=== PATIENT | male | born 1955 | race Caucasian/White ===

== ENCOUNTER 2021-04-14 22:14 | Emergency (ER) | payer MEDICARE, OTHER ==
[2021-04-14 22:40] VITALS: BP 150/64; PULSE 72
[2021-04-14] MEDS ORDERED: Acetaminophen/HYDROcodone 325-5 MG Tab PO ONE (22:52)
--- NOTE | 2021-04-14 23:30 | EDM.PDOC ---
ED HPI GENERAL MEDICAL PROBLEM - General Chief Complaint: Lower Extremity Injury/Pain Stated Complaint: FALL/LT HIP PAIN Time Seen by Provider: 04/14/21 22:36 Source of Information: Reports: Patient, RN Notes Reviewed - History of Present Illness INITIAL COMMENTS - FREE TEXT/NARRATIVE: 66 yr old male slipped on ice a short time ago. Has pain and some swelling L lateral hip and L post buttock. Denies other pain or injury. He is on coumadin. He did not hit his head. Denies Milian, neck, back or chest pain or difficulty breathing. 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 Left Hip Pain Score (Numeric/FACES): 7 - Related Data Allergies Allergy/AdvReac Type Severity Reaction Status Date / Time No Known Allergies Allergy Verified 04/14/21 22:33 Home Meds: Home Meds Aspirin [Halfprin] 81 mg PO DAILY 11/09/13 [History] Diltiazem IR [Cardizem] 30 mg PO Q12HR 11/09/13 [History] Ferrous Sulfate [Iron] 325 mg PO DAILY 11/09/13 [History] Folic Acid 1 mg PO DAILY 11/09/13 [History] Simvastatin 40 mg PO DAILY 11/09/13 [History] Warfarin [Coumadin] 5 mg PO DAILY 11/09/13 [History] Albuterol Sulfate 04/14/21 [History] Clopidogrel [Plavix] 04/14/21 [History] Cyanocobalamin/FA/Pyridoxine [Folbic] 04/14/21 [History] Furosemide [Lasix] 04/14/21 [History] Hydrocodone/Acetaminophen [HYDROcodone-Acetaminophen 5-325 MG] 1 each PO Q6HR PRN #10 tab 04/14/21 [Rx] atorvaSTATin [Lipitor] 04/14/21 [History] Past Medical History Cardiovascular History: Reports: Afib, Heart Failure, High Cholesterol, Hypertension, SOB on Exertion Respiratory History: Reports: Sleep Apnea Neurological History: Reports: Neuropathy, Peripheral - Past Surgical History Cardiovascular Surgical History: Reports: Cardiac Ablation Social & Family History - Tobacco Use Tobacco Use Status *Q: Unknown Ever Used Tobacco Review of Systems - Review of Systems Review Of Systems: See Below Constitutional: Reports: No Symptoms Eyes: Reports: No Symptoms Ears: Reports: No Symptoms Nose: Reports: No Symptoms Mouth/Throat: Reports: No Symptoms Respiratory: Denies: Shortness of Breath Cardiovascular: Denies: Chest Pain GI/Abdominal: Denies: Abdominal Pain, Nausea, Vomiting Musculoskeletal: Denies: Neck Pain, Shoulder Pain Skin: Reports: No Symptoms Neurological: Reports: No Symptoms ED EXAM, GENERAL - Physical Exam Exam: See Below General Appearance: Alert, Mild Distress Ear Exam: Bilateral Ear: Auricle Normal Nose: Normal Inspection Head: Atraumatic Neck: Supple, Non-Tender Respiratory/Chest: No Respiratory Distress, Lungs Clear, Normal Breath Sounds GI/Abdominal: Non-Tender Back Exam: No: Paraspinal Tenderness, Vertebral Tenderness Extremities: Other (mild tenderness L lateral hip and L post. buttock, no bruising of lateral hip or buttock visible. He can move his L leg with some discomfort, there is bruising of his medial R leg from prior injury) Neurological: Alert, Oriented, No Motor/Sensory Deficits Course - Vital Signs Last Recorded V/S: Last Vital Signs Temp 97.5 F 04/14/21 22:36 Pulse 72 04/14/21 22:36 Resp 20 04/14/21 22:36 BP 150/64 H 04/14/21 22:36 Pulse Ox 88 L 04/14/21 22:36 - Orders/Labs/Meds Orders: Active Orders 24 hr Category Date Time Status Hip Min 2V or 3V w Pelvis Lt [CR] Stat Exams 04/14/21 22:52 Taken Meds: Medications Discontinued Medications Generic Name Dose Route Start Last Admin Trade Name Matthew PRN Reason Stop Dose Admin Hydrocodone Bitart/Acetaminophen 1 tab 04/14/21 22:52 04/14/21 23:09 Acetaminophen/Hydrocodone 325-5 Mg Tab PO 04/14/21 22:53 1 tab ONETIME ONE Administration - Re-Assessments/Exams Free Text/Narrative Re-Assessment/Exam: 04/14/21 23:59 X rays of L hip and pelvis no fx. Departure - Departure Time of Disposition: 23:24 Disposition: Home, Self-Care 01 Condition: Fair Clinical Impression: Fall Qualifiers: Encounter type: initial encounter Qualified Code(s): W19.XXXA - Unspecified fall, initial encounter Contusion of hip Qualifiers: Encounter type: initial encounter Laterality: left Qualified Code(s): S70.02XA - Contusion of left hip, initial encounter - Discharge Information Prescriptions: Hydrocodone/Acetaminophen [HYDROcodone-Acetaminophen 5-325 MG] 1 each PO Q6HR PRN #10 tab PRN Reason: Pain Instructions: Contusion, Spal-[place]-Ncyd Referrals: Manuel Baugh MD [Primary Care Provider] - Forms: ED Department Discharge Additional Instructions: Rest, ice packs 2 to 3 times daily as needed. Tylenol for mild to moderate discomfort or hydrocodone if needed for more severe pain. When the pain becomes less severe you can go to 1/2 tab pain pill q 6 to 8 hr as discussed. [facility] You can pick that up in the morning. Follow up clinic as needed, return to ED as needed if symptoms worsening in any way. Sepsis Event Note (ED) - Evaluation Sepsis Screening Result: No Definite Risk - Focused Exam Vital Signs: Vital Signs Temp Pulse Resp BP Pulse Ox 04/14/21 22:36 97.5 F 72 20 150/64 H 88 L - My Orders Last 24 Hours: My Active Orders 04/14/21 22:52 Hip Min 2V or 3V w Pelvis Lt [CR] Stat - Assessment/Plan Last 24 Hours: My Active Orders 04/14/21 22:52 Hip Min 2V or 3V w Pelvis Lt [CR] Stat
--- NOTE | 2021-04-15 07:02 | CR ---
Pelvis and left hip: AP view of the pelvis was obtained as well as AP and frog-leg lateral views of the left hip. Comparison: Prior CT abdomen and pelvis study of 12/21/10. Diffuse joint space narrowing is seen within both hips. Mild degenerative change is seen within the sacroiliac joints. Density is noted lateral to the right iliac wing which is most likely artifact. Disc space narrowing is noted within the lumbar spine. Vascular calcification is noted. No acute fracture or other abnormality is appreciated. Impression: 1. Degenerative change as noted above. 2. Nothing acute is appreciated on AP pelvis or 2-view left hip exam. Diagnostic code #2
== END 2021-04-14 23:57 | disposition home or self-care (01) ==
LOC: JD.ED 22:14
DX: S70.02XA Contusion of left hip, initial encounter (principal); I48.91 Unspecified atrial fibrillation; E78.00 Pure hypercholesterolemia, unspecified; I11.0 Hypertensive heart disease with heart failure; I50.9 Heart failure, unspecified; Z79.82 Long term (current) use of aspirin; Z79.01 Long term (current) use of anticoagulants; Z79.899 Other long term (current) drug therapy; W00.0XXA Fall on same level due to ice and snow, initial encounter
CPT/HCPCS: 73502; 99283; A9270

== ENCOUNTER 2021-08-02 12:17 | Emergency (ER) | payer MEDICARE, OTHER ==
[2021-08-02 12:45] VITALS: BP 119/79; PULSE 77
[2021-08-02] MEDS ORDERED: Ondansetron 4 MG/2 ML SDV IVPUSH ONE (12:49)
[2021-08-02] MEDS ORDERED: HYDROmorphone 1 MG/ML Syringe IVPUSH STA (12:49)
[2021-08-02] MEDS ORDERED: Sodium Chloride 0.9% 10 ML Syringe FLUSH PRN (12:49)
[2021-08-02] MEDS ORDERED: Iopamidol 612 MG/ML 50 ML SDV IVPUSH ONE (12:53)
[2021-08-02] MEDS ORDERED: Iopamidol 612 MG/ML 100 ML Bottle IVPUSH ONE (12:53)
[2021-08-02] MEDS ORDERED: Sodium Chloride 0.9% 1,000 ML IV SCH (13:00)
[2021-08-02] MEDS: Sodium Chloride 0.9% 10 ML Syringe FLUSH PRN ×2 (13:17→13:56)
[2021-08-02 15:26] LABS: CORONAVIRUS COVID-19 NAA NEGATIVE (NEGATIVE)
[2021-08-02] MEDS ORDERED: Albuterol 0.083% 2.5 MG/3 ML Neb Soln NEB ONE (15:29)
[2021-08-02] MEDS ORDERED: Lactated Ringers 1,000 ML IV ONE (15:44)
== END 2021-08-02 16:00 ==
LOC: JD.ED 12:17
DX: K40.30 Unilateral inguinal hernia, with obstruction, without gangrene, not specified as recurrent (principal); J44.9 Chronic obstructive pulmonary disease, unspecified; E78.00 Pure hypercholesterolemia, unspecified; I11.0 Hypertensive heart disease with heart failure; I50.9 Heart failure, unspecified; Z91.012 Allergy to eggs; Z79.01 Long term (current) use of anticoagulants; Z79.82 Long term (current) use of aspirin; Z79.899 Other long term (current) drug therapy; Z20.822 Contact with and (suspected) exposure to COVID-19
CPT/HCPCS: 0240U; 36415; 74177; 80053; 81001; 83690; 85025; 86140; 94640; 96374; 96375; 99285; J1170; J2405; J7030; J7120; Q9967; J3490

== ENCOUNTER 2022-02-24 12:45 | Emergency (ER) | payer MEDICARE, OTHER ==
[2022-02-24] MEDS ORDERED: Sodium Chloride 0.9% 10 ML Syringe FLUSH PRN (14:09)
[2022-02-24 14:35] LABS: ESTIMATED GFR 68 mL/min (>60)
[2022-02-24 15:56] VITALS: BP 110/68; PULSE 72
== END 2022-02-24 15:50 | disposition home or self-care (01) ==
LOC: JD.ED 12:45
DX: I11.0 Hypertensive heart disease with heart failure (principal); I50.9 Heart failure, unspecified; Z88.8 Allergy status to other drugs, medicaments and biological substances; Z91.012 Allergy to eggs; Z79.82 Long term (current) use of aspirin; Z79.899 Other long term (current) drug therapy; Z79.01 Long term (current) use of anticoagulants; Z20.822 Contact with and (suspected) exposure to COVID-19
CPT/HCPCS: 36415; 36600; 71045; 80053; 82803; 83880; 84484; 85025; 86140; 93005; 99285; U0002

== ENCOUNTER 2022-03-25 18:21 | Inpatient (IN) | payer MEDICARE, OTHER ==
[2022-03-25] MEDS ORDERED: Sodium Chloride 0.9% 10 ML Syringe FLUSH PRN (18:40)
[2022-03-25] MEDS ORDERED: Albuterol/Ipratropium 3.0-0.5 MG/3 ML Neb Soln NEB ONE (18:42)
[2022-03-25] MEDS ORDERED: Azithromycin 500 MG in Sodium Chloride 0.9% 250 ML IV ONE (20:27)
[2022-03-25] MEDS ORDERED: Albuterol 0.083% 2.5 MG/3 ML Neb Soln NEB PRN (22:21)
[2022-03-25] MEDS: Albuterol 0.083% 2.5 MG/3 ML Neb Soln NEB SCH (23:26)
[2022-03-25] MEDS ORDERED: Diltiazem IR 60 MG Tab PO ONE (23:45)
[2022-03-26] MEDS ORDERED: Acetaminophen 325 MG Tab PO PRN (00:08)
[2022-03-26] MEDS ORDERED: Albuterol 0.083% 2.5 MG/3 ML Neb Soln NEB SCH (02:00)
[2022-03-26] MEDS: Albuterol 0.083% 2.5 MG/3 ML Neb Soln NEB SCH ×6 (02:22→21:15)
[2022-03-26] MEDS ORDERED: Albuterol 0.083% 2.5 MG/3 ML Neb Soln NEB PRN (06:34)
[2022-03-26] MEDS: Diltiazem IR 30 MG Tab PO SCH ×3 (10:00→21:23)
[2022-03-26] MEDS: Calcium Carbonate/Vitamin D3 600 MG-200 Units Tab PO SCH ×2 (10:00→21:23)
[2022-03-26] MEDS: Vitamin B Complex With Vitamin C Cap PO SCH (10:00)
[2022-03-26] MEDS: Bumetanide 1 MG Tab PO SCH ×2 (10:00→18:52)
[2022-03-26] MEDS: Aspirin 81 MG Tab.Chew PO SCH (10:01)
[2022-03-26] MEDS: atorvaSTATin 40 MG Tab PO SCH (10:01)
[2022-03-26] MEDS: methylPREDNISolone Sodium Succinate 40 MG/1 ML SDV IVPUSH SCH ×2 (10:01→21:23)
[2022-03-26] MEDS: Ferrous Sulfate 324 MG Tab.EC PO SCH (10:01)
[2022-03-26] MEDS: Digoxin 250 MCG Tab PO SCH (14:07)
[2022-03-26] MEDS ORDERED: Bumetanide 1 MG Tab PO SCH (17:00)
[2022-03-26] MEDS ORDERED: Warfarin 5 MG Tab PO SCH (18:00)
[2022-03-26] MEDS ORDERED: Warfarin 7.5 MG Tab PO SCH (18:00)
[2022-03-26] MEDS: Azithromycin 250 MG in Sodium Chloride 0.9% 250 ML IV SCH (21:24)
[2022-03-27] MEDS: Albuterol 0.083% 2.5 MG/3 ML Neb Soln NEB SCH ×6 (01:57→21:14)
[2022-03-27] MEDS: Calcium Carbonate/Vitamin D3 600 MG-200 Units Tab PO SCH ×2 (09:22→20:45)
[2022-03-27] MEDS: Vitamin B Complex With Vitamin C Cap PO SCH (09:22)
[2022-03-27] MEDS: Diltiazem IR 30 MG Tab PO SCH ×3 (09:23→20:45)
[2022-03-27] MEDS: atorvaSTATin 40 MG Tab PO SCH (09:23)
[2022-03-27] MEDS: Ferrous Sulfate 324 MG Tab.EC PO SCH (09:23)
[2022-03-27] MEDS: Bumetanide 1 MG Tab PO SCH (09:23)
[2022-03-27] MEDS: Aspirin 81 MG Tab.Chew PO SCH (09:23)
[2022-03-27] MEDS: methylPREDNISolone Sodium Succinate 40 MG/1 ML SDV IVPUSH SCH ×2 (09:24→20:46)
[2022-03-27] MEDS: Digoxin 250 MCG Tab PO SCH (11:58)
[2022-03-27] MEDS ORDERED: Bumetanide 1 MG Tab PO SCH (17:00)
[2022-03-27] MEDS ORDERED: Warfarin 7.5 MG Tab PO SCH ×2 (18:00)
[2022-03-27] MEDS: Azithromycin 250 MG in Sodium Chloride 0.9% 250 ML IV SCH (20:48)
[2022-03-28] MEDS: Albuterol 0.083% 2.5 MG/3 ML Neb Soln NEB SCH ×4 (02:09→13:09)
[2022-03-28] MEDS: atorvaSTATin 40 MG Tab PO SCH (08:35)
[2022-03-28] MEDS: Vitamin B Complex With Vitamin C Cap PO SCH (08:35)
[2022-03-28] MEDS: Calcium Carbonate/Vitamin D3 600 MG-200 Units Tab PO SCH (08:35)
[2022-03-28] MEDS: Ferrous Sulfate 324 MG Tab.EC PO SCH (08:35)
[2022-03-28] MEDS: Aspirin 81 MG Tab.Chew PO SCH (08:35)
[2022-03-28] MEDS: methylPREDNISolone Sodium Succinate 40 MG/1 ML SDV IVPUSH SCH (08:36)
[2022-03-28] MEDS: Diltiazem IR 30 MG Tab PO SCH (08:39)
[2022-03-28] MEDS ORDERED: Bumetanide 1 MG Tab PO SCH (09:00)
[2022-03-28 11:57] VITALS: BP 105/60
[2022-03-28] MEDS: Digoxin 250 MCG Tab PO SCH (12:49)
[2022-03-28 13:16] VITALS: PULSE 71
[2022-03-28] MEDS ORDERED: Warfarin 7.5 MG Tab PO SCH (18:00)
== END 2022-03-28 13:22 | disposition home or self-care (01) | DRG 189 ==
LOC: JD.ED 18:21 → JD.MS 20:24
PROVIDERS: ADMIT Internal Medicine; ATTEND Internal Medicine
DX: J96.22 Acute and chronic respiratory failure with hypercapnia (principal); J44.1 Chronic obstructive pulmonary disease with (acute) exacerbation; I50.32 Chronic diastolic (congestive) heart failure; I50.9 Heart failure, unspecified; E87.29 Other acidosis; G62.9 Polyneuropathy, unspecified; G47.30 Sleep apnea, unspecified; E78.00 Pure hypercholesterolemia, unspecified; I48.91 Unspecified atrial fibrillation; I11.0 Hypertensive heart disease with heart failure; Z88.8 Allergy status to other drugs, medicaments and biological substances; Z91.012 Allergy to eggs; Z99.81 Dependence on supplemental oxygen; Z79.899 Other long term (current) drug therapy; Z79.01 Long term (current) use of anticoagulants; Z79.82 Long term (current) use of aspirin; Z87.891 Personal history of nicotine dependence; Z95.0 Presence of cardiac pacemaker
CPT/HCPCS: 36415; 36600; 71045; 71045-26; 80048; 80053; 82803; 83735; 83880; 84484; 85025; 85027; 85610; 85730; 87040; 93005; 94640; 94660; 94761; 96365; 99285-25; A9270-GY; J0456; J2920; J3490; J7050; J7620-GY

== ENCOUNTER 2022-04-28 23:04 | Emergency (ER) | payer MEDICARE, OTHER ==
[2022-04-28 23:20] VITALS: BP 116/79; PULSE 72
[2022-04-29] MEDS ORDERED: Albuterol/Ipratropium 3.0-0.5 MG/3 ML Neb Soln NEB ONE (00:26)
== END 2022-04-29 02:53 | disposition home or self-care (01) ==
LOC: JD.ED 23:04
DX: J44.9 Chronic obstructive pulmonary disease, unspecified (principal); R94.31 Abnormal electrocardiogram [ECG] [EKG]; I48.91 Unspecified atrial fibrillation; I11.0 Hypertensive heart disease with heart failure; I50.9 Heart failure, unspecified; E78.00 Pure hypercholesterolemia, unspecified; Z88.8 Allergy status to other drugs, medicaments and biological substances; Z91.012 Allergy to eggs; Z79.01 Long term (current) use of anticoagulants; Z79.82 Long term (current) use of aspirin; Z79.899 Other long term (current) drug therapy
CPT/HCPCS: 36415; 71045; 71045-26; 80053; 80162; 84484; 85025; 85610; 93005; 94640; 99285; J7620-GY

== ENCOUNTER 2023-06-27 07:30 | Day surgery (SDC) | payer MEDICARE ==
[2023-06-27] MEDS: Polymyxin B/Trimethoprim 10 ML Bottle EYELF SCH (07:50)
[2023-06-27] MEDS: Brimonidine 0.2% Ophth Soln 5 ML Bottle EYELF SCH (07:55)
[2023-06-27] MEDS: Phenylephrine 2.5% Ophth Soln 2 ML Bot EYELF SCH (08:00)
[2023-06-27] MEDS: Tropicamide 1% Ophth Soln 3 ML Bottle EYELF SCH (08:06)
[2023-06-27] MEDS: Proparacaine 0.5% Ophth Soln 15 ML Bottle EYEBOTH SCH (08:48)
[2023-06-27] MEDS: Lidocaine 1% PF 2 ML SDV INJECT SCH (09:04)
[2023-06-27] MEDS: Cefuroxime 10 MG/ML SYRINGE EYELF SCH (09:22)
[2023-06-27] MEDS: Pilocarpine 4% Ophth Soln 15 ML Bot EYELF SCH (09:22)
[2023-06-27 09:42] VITALS: BP 120/67; PULSE 72
== END 2023-06-27 09:33 | disposition home or self-care (01) ==
LOC: JD.SDS 07:30
PROVIDERS: ATTEND Ophthalmology
DX: H26.9 Unspecified cataract (principal); I11.0 Hypertensive heart disease with heart failure; I50.9 Heart failure, unspecified; J44.9 Chronic obstructive pulmonary disease, unspecified; E78.00 Pure hypercholesterolemia, unspecified; I48.91 Unspecified atrial fibrillation; Z79.82 Long term (current) use of aspirin; Z79.01 Long term (current) use of anticoagulants; Z79.899 Other long term (current) drug therapy
CPT/HCPCS: A9270-GY; J0697; J3490

== ENCOUNTER 2023-11-14 17:21 | Emergency (ER) | payer MEDICARE ==
[2023-11-14] MEDS: Sodium Chloride 0.9% 10 ML Syringe FLUSH PRN (18:05)
[2023-11-14] MEDS: Albuterol/Ipratropium 3.0-0.5 MG/3 ML Neb Soln NEB ONE ×2 (18:12→19:45)
[2023-11-14 18:23] LABS: BASOPHILS PERCENT AUTO 0.2 % (0.0-1.0); EOSINOPHILS PERCENT AUTO 0.2 % (0.0-6.0); HEMATOCRIT 48.5 % (42.0-52.0); IMMATURE GRAN ABSOLUTE AUTO 0.06 K/mm3 (0.00-0.05); IMMATURE GRAN PERCENT AUTO 0.4 % (0.0-0.4); LYMPHOCYTES ABSOLUTE AUTO 0.7 K/mm3 (1.0-4.8); LYMPHOCYTES PERCENT AUTO 4.3 % (24.0-44.0); MEAN CORPUSCULAR HEMOGLOBIN 32.5 pg (28.0-32.0); MEAN CORPUSCULAR VOLUME 98.6 fl (83.0-99.0); MEAN PLATELET VOLUME 9.4 fl (9.4-12.4); MONOCYTES ABSOLUTE AUTO 1.1 K/mm3 (0.0-0.8); MONOCYTES PERCENT AUTO 6.9 % (0.0-8.0); NEUTROPHILS ABSOLUTE AUTO 14.6 K/mm3 (1.8-7.7); PLATELET COUNT,PLT 191 K/mm3 (150-400); RED BLOOD CELL COUNT 4.92 M/mm3 (4.52-5.90); WHITE BLOOD CELL COUNT,WBC 16.57 K/mm3 (3.9-11.3)
[2023-11-14] MEDS: methylPREDNISolone Sodium Succinate 125 MG/2 ML SDV IVPUSH ONE (18:28)
[2023-11-14 18:46] LABS: INR 2.17; PROTHROMBIN TIME 21.9 SECONDS (9.7-12.0)
[2023-11-14 18:48] LABS: A/G RATIO 1.3 (1-2); BILIRUBIN TOTAL 1.4 mg/dL (0.2-1.0); BUN/CREATININE RATIO 10.8 (14-18); C-REACTIVE PROTEIN 7.2 mg/dL (<0.30); CALCIUM 9.2 mg/dL (8.5-10.1); CREATININE 1.3 mg/dL (0.7-1.3); EST CRCL DRUG DOSING (CG) 55.9 mL/min; PROTEIN TOTAL,TP 7.1 g/dl (6.4-8.2)
[2023-11-14] MEDS: cefTRIAXone 2 GM in Sodium Chloride 0.9% 100 ML IV ONE (20:28)
[2023-11-14 21:20] VITALS: BP 114/63; PULSE 85
== END 2023-11-14 21:00 | disposition home or self-care (01) ==
LOC: JD.ED 17:21
DX: J18.9 Pneumonia, unspecified organism (principal); J44.9 Chronic obstructive pulmonary disease, unspecified; I11.0 Hypertensive heart disease with heart failure; I50.9 Heart failure, unspecified; E78.00 Pure hypercholesterolemia, unspecified; Z88.8 Allergy status to other drugs, medicaments and biological substances; Z79.899 Other long term (current) drug therapy; Z79.01 Long term (current) use of anticoagulants
CPT/HCPCS: 36415; 71045; 80053; 83880; 84484; 85025; 85610; 86140; 93005; 94640; 96365; 96375; 99285; J0696; J2919; J3490; J7620-GY

== ENCOUNTER 2023-12-26 20:11 | Emergency (ER) | payer MEDICARE ==
[2023-12-26 20:39] LABS: BASOPHILS PERCENT AUTO 0.4 % (0.0-1.0); EOSINOPHILS PERCENT AUTO 0.8 % (0.0-6.0); HEMATOCRIT 47.3 % (42.0-52.0); HEMOGLOBIN 15.9 gm/dl (14.0-18.0); IMMATURE GRAN ABSOLUTE AUTO 0.01 K/mm3 (0.00-0.05); IMMATURE GRAN PERCENT AUTO 0.2 % (0.0-0.4); LYMPHOCYTES ABSOLUTE AUTO 0.6 K/mm3 (1.0-4.8); MEAN CORPUSCULAR HEMOGLOBIN 32.3 pg (28.0-32.0); MEAN CORPUSCULAR HGB CONC 33.6 g/dl (32.0-36.0); MEAN CORPUSCULAR VOLUME 95.9 fl (83.0-99.0); MEAN PLATELET VOLUME 9.8 fl (9.4-12.4); MONOCYTES ABSOLUTE AUTO 0.6 K/mm3 (0.0-0.8); MONOCYTES PERCENT AUTO 11.6 % (0.0-8.0); NEUTROPHILS ABSOLUTE AUTO 3.9 K/mm3 (1.8-7.7); PLATELET COUNT,PLT 145 K/mm3 (150-400); RED BLOOD CELL COUNT 4.93 M/mm3 (4.52-5.90); WHITE BLOOD CELL COUNT,WBC 5.08 K/mm3 (3.9-11.3)
[2023-12-26] MEDS: Albuterol/Ipratropium 3.0-0.5 MG/3 ML Neb Soln NEB ONE (20:42)
[2023-12-26] MEDS: methylPREDNISolone Sodium Succinate 125 MG/2 ML SDV IVPUSH ONE (21:07)
[2023-12-26] MEDS: Sodium Chloride 0.9% 10 ML Syringe FLUSH PRN (21:10)
[2023-12-26 21:11] LABS: A/G RATIO 1.4 (1-2); ALANINE AMINOTRANSFERASE,ALT 32 U/L (16-63); ALKALINE PHOSPHATASE 122 U/L (46-116); ANION GAP 8.4 (5-15); ASPARTATE AMNIOTRANSFERASE,AST 36 U/L (15-37); BILIRUBIN TOTAL 0.9 mg/dL (0.2-1.0); BLOOD UREA NITROGEN,BUN 13 mg/dL (7-18); C-REACTIVE PROTEIN 0.62 mg/dL (<0.30); CALCIUM 8.5 mg/dL (8.5-10.1); CARBON DIOXIDE,CO2 32 mEq/L (21-32); CHLORIDE,CL 100 mEq/L (98-107); CREATININE 1.3 mg/dL (0.7-1.3); ESTIMATED GFR 61 mL/min (>60); GLUCOSE RANDOM 128 mg/dL (70-99); POTASSIUM,K 3.4 mEq/L (3.5-5.1); PROTEIN TOTAL,TP 6.9 g/dl (6.4-8.2); SODIUM,NA 137 mEq/L (136-145); TROPONIN I HIGH SENSITIVITY 17 pg/mL (<=76)
[2023-12-26 21:18] LABS: APPEARANCE,URINE CLEAR (Clear); BILIRUBIN,URINE NEGATIVE (Negative); COLOR,URINE YELLOW (Yellow); GLUCOSE,URINE 2+ (Negative); KETONES,URINE NEGATIVE (Negative); LEUKOCYTE ESTERASE,URINE NEGATIVE (Negative); NITRITE,URINE NEGATIVE (Negative); OCCULT BLOOD,URINE TRACE-LYSED (Negative); PH,URINE 5.5 (5.0-8.0); PROTEIN,URINE 2+ (Negative); UROBILINOGEN,URINE 0.2 (0.2-1.0)
[2023-12-26 21:58] LABS: BACTERIA,URINE FEW /hpf (FEW); MUCUS,URINE FEW /hpf (FEW); RBC,URINE 0-5 /hpf (0-5); SQUAMOUS EPITHELIAL CELLS,UR 0-5 /hpf (0-5); WBC,URINE 0-5 /hpf (0-5)
[2023-12-26 22:09] LABS: CORONAVIRUS COVID-19 NAA NEGATIVE (NEGATIVE); INFLUENZA A NAA NEGATIVE (NEGATIVE); RESPIRATORY SYNCYTIAL VIR NAA NEGATIVE (NEGATIVE)
[2023-12-26 23:59] VITALS: BP 110/67; PULSE 81
== END 2023-12-26 23:56 | disposition home or self-care (01) ==
LOC: JD.ED 20:11
DX: J44.1 Chronic obstructive pulmonary disease with (acute) exacerbation (principal); I11.0 Hypertensive heart disease with heart failure; I50.9 Heart failure, unspecified; Z88.8 Allergy status to other drugs, medicaments and biological substances; Z79.82 Long term (current) use of aspirin; Z79.899 Other long term (current) drug therapy; Z79.890 Hormone replacement therapy; Z79.01 Long term (current) use of anticoagulants; Z86.16 Personal history of COVID-19; Z87.891 Personal history of nicotine dependence
CPT/HCPCS: 0241U; 36415; 71046; 71046-26; 80053; 81001; 83735; 84484; 85025; 86140; 93005; 94640; 96374; 99285-25; J2919; J3490; J7620-GY

== ENCOUNTER 2024-05-16 21:48 | Inpatient (IN) | payer MEDICARE, OTHER ==
[2024-05-16 22:01] LABS: BASOPHILS ABSOLUTE AUTO 0.1 K/mm3 (0.0-0.2); BASOPHILS PERCENT AUTO 0.3 % (0.0-1.0); EOSINOPHILS ABSOLUTE AUTO 0.5 K/mm3 (0.0-0.4); EOSINOPHILS PERCENT AUTO 3.6 % (0.0-6.0); HEMATOCRIT 51.2 % (42.0-52.0); HEMOGLOBIN 16.5 gm/dl (14.0-18.0); IMMATURE GRAN ABSOLUTE AUTO 0.06 K/mm3 (0.00-0.05); IMMATURE GRAN PERCENT AUTO 0.4 % (0.0-0.4); LYMPHOCYTES ABSOLUTE AUTO 1.1 K/mm3 (1.0-4.8); LYMPHOCYTES PERCENT AUTO 7.2 % (24.0-44.0); MEAN CORPUSCULAR HEMOGLOBIN 30.9 pg (28.0-32.0); MEAN CORPUSCULAR HGB CONC 32.2 g/dl (32.0-36.0); MEAN CORPUSCULAR VOLUME 95.9 fl (83.0-99.0); MEAN PLATELET VOLUME 9.1 fl (9.4-12.4); MONOCYTES ABSOLUTE AUTO 1.2 K/mm3 (0.0-0.8); MONOCYTES PERCENT AUTO 8.4 % (0.0-8.0); NEUTROPHILS ABSOLUTE AUTO 11.8 K/mm3 (1.8-7.7); NEUTROPHILS PERCENT AUTO 80.1 % (41.0-71.0); PLATELET COUNT,PLT 329 K/mm3 (150-400); RED BLOOD CELL COUNT 5.34 M/mm3 (4.52-5.90); WHITE BLOOD CELL COUNT,WBC 14.69 K/mm3 (3.9-11.3)
[2024-05-16] MEDS: Sodium Chloride 0.9% 10 ML Syringe FLUSH PRN (22:02)
[2024-05-16] MEDS: methylPREDNISolone Sodium Succinate 125 MG/2 ML SDV IVPUSH ONE (22:02)
[2024-05-16] MEDS: Albuterol/Ipratropium 3.0-0.5 MG/3 ML Neb Soln NEB ONE (22:04)
[2024-05-16 22:23] LABS: INR 2.85; PROTHROMBIN TIME 28.2 SECONDS (9.7-12.0)
[2024-05-16 22:25] LABS: LACTIC ACID 1.9 mmol/L (0.4-2.0)
[2024-05-16 22:31] LABS: A/G RATIO 1.2 (1-2); ALBUMIN 4.1 g/dl (3.4-5.0); ANION GAP 11.1 (5-15); BILIRUBIN TOTAL 0.8 mg/dL (0.2-1.0); BUN/CREATININE RATIO 15.5 (14-18); CALCIUM 9.1 mg/dL (8.5-10.1); CREATININE 1.1 mg/dL (0.7-1.3); EST CRCL DRUG DOSING (CG) 65.17 mL/min; MAGNESIUM 2.3 mg/dL (1.8-2.4); POTASSIUM,K 4.1 mEq/L (3.5-5.1); PROTEIN TOTAL,TP 7.6 g/dl (6.4-8.2)
[2024-05-16] MEDS: Magnesium Sulfate/Water Premix 2 GM/50 ML BAG IV ONE (22:34)
[2024-05-16 22:40] LABS: BASE EXCESS ARTERIAL 3.4 (-2-2.0); BICARBONATE,ARTERIAL 30.1 meq/L (22.0-26.0); O2 SATURATION ARTERIAL 92.4 % (96.0-97.0); PCO2 ARTERIAL 55.9 mmHg (35.0-45.0)
[2024-05-16] MEDS: Azithromycin 500 MG in Sodium Chloride 0.9% 250 ML IV ONE (23:27)
[2024-05-16] MEDS ORDERED: Magnesium Hydroxide 400 MG/5 ML Susp 30 ML Cup PO PRN (23:44)
[2024-05-17] MEDS: Furosemide 40 MG/4 ML VIAL IVPUSH ONE (00:15)
[2024-05-17 00:44] LABS: APPEARANCE,URINE SLT CLOUDY (Clear); BILIRUBIN,URINE NEGATIVE (Negative); COLOR,URINE YELLOW (Yellow); GLUCOSE,URINE 2+ (Negative); KETONES,URINE NEGATIVE (Negative); LEUKOCYTE ESTERASE,URINE NEGATIVE (Negative); NITRITE,URINE NEGATIVE (Negative); OCCULT BLOOD,URINE NEGATIVE (Negative); PH,URINE 5.5 (5.0-8.0); PROTEIN,URINE 1+ (Negative); UROBILINOGEN,URINE 0.2 (0.2-1.0)
[2024-05-17 00:57] LABS: BACTERIA,URINE MANY /hpf (FEW); EPITHELIAL CELLS,URINE 0-5 /hpf (0-5); RBC,URINE 0-5 /hpf (0-5); WBC,URINE 30-40 /hpf (0-5)
[2024-05-17 00:58] LABS: HYALINE CASTS,URINE 0-5 /lpf (0-5); MUCUS,URINE NOT SEEN /hpf (FEW)
[2024-05-17] MEDS: Acetaminophen 325 MG Tab PO PRN (01:48)
[2024-05-17] MEDS: Albuterol/Ipratropium 3.0-0.5 MG/3 ML Neb Soln NEB SCH (06:05)
[2024-05-17] MEDS: Empagliflozin 10 MG Tab PO SCH (07:59)
[2024-05-17] MEDS: Cefepime 2 GM Vial IVPUSH SCH (08:08)
[2024-05-17] MEDS: Formoterol/Mometasone 100-5 MCG 8.8 GM Inhaler ONE (08:37)
[2024-05-17] MEDS ORDERED: Warfarin 7.5 MG Tab PO SCH (09:00)
[2024-05-17] MEDS: Formoterol/Mometasone 100-5 MCG 8.8 GM Inhaler INH SCH (09:00)
[2024-05-17] MEDS: Potassium Chloride 20 MEQ Tab.ER PO SCH (09:03)
[2024-05-17] MEDS: atorvaSTATin 40 MG Tab PO SCH (09:03)
[2024-05-17] MEDS: Levothyroxine 25 MCG Tab PO SCH (09:03)
[2024-05-17] MEDS: Aspirin 81 MG Tab.EC PO SCH (09:03)
[2024-05-17] MEDS: Furosemide 40 MG Tab PO SCH (09:05)
[2024-05-17] MEDS: methylPREDNISolone Sodium Succinate 40 MG/1 ML SDV IVPUSH SCH (09:40)
[2024-05-17] MEDS: Albuterol 0.083% 2.5 MG/3 ML Neb Soln NEB PRN (12:16)
[2024-05-17 13:06] LABS: TSH 1.793 uIU/mL (0.358-3.74)
[2024-05-17] MEDS: Fluticasone NASAL Spray 16 GM Bottle NASBOTH SCH (15:30)
[2024-05-17] MEDS: Warfarin 5 MG Tab PO SCH (17:53)
[2024-05-17] MEDS ORDERED: Warfarin 5 MG Tab PO ONE (18:00)
[2024-05-18] MEDS: Furosemide 40 MG Tab PO SCH (00:21)
[2024-05-18 05:39] LABS: BASOPHILS PERCENT AUTO 0.1 % (0.0-1.0); EOSINOPHILS PERCENT AUTO 0.1 % (0.0-6.0); HEMATOCRIT 45.9 % (42.0-52.0); HEMOGLOBIN 15.1 gm/dl (14.0-18.0); IMMATURE GRAN ABSOLUTE AUTO 0.09 K/mm3 (0.00-0.05); IMMATURE GRAN PERCENT AUTO 0.7 % (0.0-0.4); LYMPHOCYTES ABSOLUTE AUTO 0.4 K/mm3 (1.0-4.8); LYMPHOCYTES PERCENT AUTO 3.1 % (24.0-44.0); MEAN CORPUSCULAR HEMOGLOBIN 30.9 pg (28.0-32.0); MEAN CORPUSCULAR HGB CONC 32.9 g/dl (32.0-36.0); MEAN CORPUSCULAR VOLUME 93.9 fl (83.0-99.0); MEAN PLATELET VOLUME 9.5 fl (9.4-12.4); MONOCYTES ABSOLUTE AUTO 0.8 K/mm3 (0.0-0.8); MONOCYTES PERCENT AUTO 6.1 % (0.0-8.0); NEUTROPHILS PERCENT AUTO 89.9 % (41.0-71.0); PLATELET COUNT,PLT 259 K/mm3 (150-400); RED BLOOD CELL COUNT 4.89 M/mm3 (4.52-5.90); WHITE BLOOD CELL COUNT,WBC 13.36 K/mm3 (3.9-11.3)
[2024-05-18 05:56] LABS: ANION GAP 11.1 (5-15); C-REACTIVE PROTEIN 1.22 mg/dL (<0.30); EST CRCL DRUG DOSING (CG) 71.68 mL/min; POTASSIUM,K 4.1 mEq/L (3.5-5.1)
[2024-05-18 06:06] LABS: INR 3.33; PROTHROMBIN TIME 32.6 SECONDS (9.7-12.0)
[2024-05-18] MEDS: Warfarin 2.5 MG Tab PO SCH (17:47)
[2024-05-19] MEDS: Furosemide 80 MG Tab PO SCH (00:23)
[2024-05-19 04:44] LABS: BASOPHILS PERCENT AUTO 0.1 % (0.0-1.0); EOSINOPHILS ABSOLUTE AUTO 0.1 K/mm3 (0.0-0.4); EOSINOPHILS PERCENT AUTO 0.4 % (0.0-6.0); HEMATOCRIT 48.5 % (42.0-52.0); HEMOGLOBIN 15.6 gm/dl (14.0-18.0); IMMATURE GRAN ABSOLUTE AUTO 0.09 K/mm3 (0.00-0.05); IMMATURE GRAN PERCENT AUTO 0.5 % (0.0-0.4); LYMPHOCYTES ABSOLUTE AUTO 0.4 K/mm3 (1.0-4.8); LYMPHOCYTES PERCENT AUTO 2.2 % (24.0-44.0); MEAN CORPUSCULAR HEMOGLOBIN 30.6 pg (28.0-32.0); MEAN CORPUSCULAR HGB CONC 32.2 g/dl (32.0-36.0); MEAN CORPUSCULAR VOLUME 95.1 fl (83.0-99.0); MEAN PLATELET VOLUME 9.4 fl (9.4-12.4); MONOCYTES ABSOLUTE AUTO 0.9 K/mm3 (0.0-0.8); MONOCYTES PERCENT AUTO 5.1 % (0.0-8.0); NEUTROPHILS ABSOLUTE AUTO 15.6 K/mm3 (1.8-7.7); NEUTROPHILS PERCENT AUTO 91.7 % (41.0-71.0); PLATELET COUNT,PLT 287 K/mm3 (150-400); WHITE BLOOD CELL COUNT,WBC 17.04 K/mm3 (3.9-11.3)
[2024-05-19 05:16] LABS: ANION GAP 7.3 (5-15); BUN/CREATININE RATIO 21.8 (14-18); C-REACTIVE PROTEIN 0.49 mg/dL (<0.30); CALCIUM 9.5 mg/dL (8.5-10.1); CREATININE 1.1 mg/dL (0.7-1.3); EST CRCL DRUG DOSING (CG) 65.17 mL/min; POTASSIUM,K 4.3 mEq/L (3.5-5.1)
[2024-05-19 06:02] LABS: INR 3.8; PROTHROMBIN TIME 36.9 SECONDS (9.7-12.0)
[2024-05-19] MEDS: predniSONE 10 MG Tab PO SCH (08:21)
[2024-05-19] MEDS: hydrOXYzine HCl 50 MG Tab PO PRN (08:59)
[2024-05-19 09:32] LABS: SLIDE REVIEW ABNORMAL SMEAR
[2024-05-19] MEDS: LORazepam 2 MG/ML SDV IVPUSH ONE (10:28)
[2024-05-19] MEDS: Tiotropium Bromide 4 GM Inhalation Spray (2.5mcg/1 dose; 10 doses) INH SCH (14:22)
[2024-05-19] MEDS: Albuterol/Ipratropium 3.0-0.5 MG/3 ML Neb Soln NEB SCH (14:22)
[2024-05-19] MEDS: Non-Formulary Medication 1 Each (Fluticasone/Umeclidin/Vilanter [Trelegy Ellipta 100-62.5- INH SCH (16:17)
[2024-05-19] MEDS: Warfarin Sliding Scale PO SCH (18:33)
[2024-05-19] MEDS: Ipratropium 0.02% 0.5 MG/2.5 ML Neb Soln NEB SCH (20:17)
[2024-05-19] MEDS: Levalbuterol HCl 1.25 MG/3 ML Neb NEB SCH (20:17)
[2024-05-19] MEDS: Formoterol/Mometasone 100-5 MCG 8.8 GM Inhaler INH SCH (20:18)
[2024-05-19] MEDS: Doxycycline 100 MG in Sodium Chloride 0.9% 100 ML IV SCH (20:55)
[2024-05-19] MEDS: LORazepam 2 MG/ML SDV IVPUSH PRN (21:09)
[2024-05-20 04:47] LABS: BASOPHILS PERCENT AUTO 0.2 % (0.0-1.0); HEMATOCRIT 49.7 % (42.0-52.0); HEMOGLOBIN 16.2 gm/dl (14.0-18.0); IMMATURE GRAN ABSOLUTE AUTO 0.07 K/mm3 (0.00-0.05); IMMATURE GRAN PERCENT AUTO 0.5 % (0.0-0.4); LYMPHOCYTES ABSOLUTE AUTO 0.8 K/mm3 (1.0-4.8); LYMPHOCYTES PERCENT AUTO 5.8 % (24.0-44.0); MEAN CORPUSCULAR HEMOGLOBIN 31.2 pg (28.0-32.0); MEAN CORPUSCULAR HGB CONC 32.6 g/dl (32.0-36.0); MEAN CORPUSCULAR VOLUME 95.6 fl (83.0-99.0); MEAN PLATELET VOLUME 9.1 fl (9.4-12.4); MONOCYTES ABSOLUTE AUTO 2.2 K/mm3 (0.0-0.8); MONOCYTES PERCENT AUTO 15.3 % (0.0-8.0); NEUTROPHILS PERCENT AUTO 78.2 % (41.0-71.0); PLATELET COUNT,PLT 242 K/mm3 (150-400); WHITE BLOOD CELL COUNT,WBC 14.09 K/mm3 (3.9-11.3)
[2024-05-20 05:12] LABS: INR 3.48
[2024-05-20 05:36] LABS: SLIDE REVIEW ABNORMAL SMEAR
[2024-05-20] MEDS: predniSONE 20 MG Tab PO SCH (09:53)
[2024-05-20 10:02] LABS: BASE EXCESS ARTERIAL 7.2 (-2-2.0); BICARBONATE,ARTERIAL 38.1 meq/L (22.0-26.0); O2 SATURATION ARTERIAL 83.3 % (96.0-97.0); PCO2 ARTERIAL 86.2 mmHg (35.0-45.0)
[2024-05-20] MEDS: methylPREDNISolone Sodium Succinate 40 MG/1 ML SDV IVPUSH SCH (10:17)
[2024-05-20] MEDS: methylPREDNISolone Sodium Succinate 40 MG/1 ML SDV ONE (10:22)
[2024-05-20 11:12] LABS: BASE EXCESS ARTERIAL 8.4 (-2-2.0); BICARBONATE,ARTERIAL 38.5 meq/L (22.0-26.0); O2 SATURATION ARTERIAL 98.9 % (96.0-97.0); PCO2 ARTERIAL 82.2 mmHg (35.0-45.0)
[2024-05-20] MEDS: Levalbuterol HCl 1.25 MG/0.5 ML Neb NEB SCH (14:34)
[2024-05-20] MEDS: Furosemide 40 MG/4 ML VIAL IVPUSH SCH ×2 (18:15→23:44)
[2024-05-20] MEDS: Warfarin Sliding Scale PO SCH (18:22)
[2024-05-20] MEDS: Furosemide 20 MG/2 ML VIAL IVPUSH SCH (18:27)
[2024-05-21 05:16] LABS: INR 2.35; PROTHROMBIN TIME 23.6 SECONDS (9.7-12.0)
[2024-05-21 08:35] LABS: BASE EXCESS ARTERIAL 13.4 (-2-2.0); BICARBONATE,ARTERIAL 42.6 meq/L (22.0-26.0)
[2024-05-21 08:40] LABS: PCO2 ARTERIAL 76.8 mmHg (35.0-45.0)
[2024-05-21] MEDS: Polyethylene Glycol 3350 Powder 17 GM Packet PO SCH (09:13)
[2024-05-21 09:16] LABS: BASOPHILS PERCENT AUTO 0.1 % (0.0-1.0); EOSINOPHILS PERCENT AUTO 0.2 % (0.0-6.0); HEMOGLOBIN 15.8 gm/dl (14.0-18.0); IMMATURE GRAN ABSOLUTE AUTO 0.03 K/mm3 (0.00-0.05); IMMATURE GRAN PERCENT AUTO 0.3 % (0.0-0.4); LYMPHOCYTES ABSOLUTE AUTO 1.1 K/mm3 (1.0-4.8); LYMPHOCYTES PERCENT AUTO 11.7 % (24.0-44.0); MEAN CORPUSCULAR HEMOGLOBIN 30.7 pg (28.0-32.0); MEAN CORPUSCULAR HGB CONC 31.6 g/dl (32.0-36.0); MEAN CORPUSCULAR VOLUME 97.3 fl (83.0-99.0); MEAN PLATELET VOLUME 9.3 fl (9.4-12.4); MONOCYTES ABSOLUTE AUTO 1.6 K/mm3 (0.0-0.8); MONOCYTES PERCENT AUTO 16.4 % (0.0-8.0); NEUTROPHILS ABSOLUTE AUTO 6.8 K/mm3 (1.8-7.7); NEUTROPHILS PERCENT AUTO 71.3 % (41.0-71.0); PLATELET COUNT,PLT 225 K/mm3 (150-400); RED BLOOD CELL COUNT 5.14 M/mm3 (4.52-5.90); WHITE BLOOD CELL COUNT,WBC 9.49 K/mm3 (3.9-11.3)
[2024-05-21] MEDS: methylPREDNISolone Sodium Succinate 40 MG/1 ML SDV ONE (09:22)
[2024-05-21] MEDS: methylPREDNISolone Sodium Succinate 40 MG/1 ML SDV IVPUSH SCH (09:22)
[2024-05-21 09:39] LABS: ANION GAP 3.1 (5-15); CALCIUM 9.3 mg/dL (8.5-10.1); EST CRCL DRUG DOSING (CG) 71.68 mL/min; POTASSIUM,K 4.1 mEq/L (3.5-5.1)
[2024-05-21] MEDS: Warfarin 7.5 MG Tab PO SCH (17:09)
[2024-05-22 04:47] LABS: BASOPHILS PERCENT AUTO 0.1 % (0.0-1.0); EOSINOPHILS ABSOLUTE AUTO 0.1 K/mm3 (0.0-0.4); EOSINOPHILS PERCENT AUTO 0.7 % (0.0-6.0); HEMATOCRIT 44.3 % (42.0-52.0); HEMOGLOBIN 14.5 gm/dl (14.0-18.0); IMMATURE GRAN ABSOLUTE AUTO 0.03 K/mm3 (0.00-0.05); IMMATURE GRAN PERCENT AUTO 0.4 % (0.0-0.4); LYMPHOCYTES ABSOLUTE AUTO 1.3 K/mm3 (1.0-4.8); LYMPHOCYTES PERCENT AUTO 15.6 % (24.0-44.0); MEAN CORPUSCULAR HEMOGLOBIN 30.9 pg (28.0-32.0); MEAN CORPUSCULAR HGB CONC 32.7 g/dl (32.0-36.0); MEAN CORPUSCULAR VOLUME 94.5 fl (83.0-99.0); MEAN PLATELET VOLUME 9.5 fl (9.4-12.4); MONOCYTES PERCENT AUTO 12.8 % (0.0-8.0); NEUTROPHILS ABSOLUTE AUTO 5.6 K/mm3 (1.8-7.7); NEUTROPHILS PERCENT AUTO 70.4 % (41.0-71.0); PLATELET COUNT,PLT 204 K/mm3 (150-400); RED BLOOD CELL COUNT 4.69 M/mm3 (4.52-5.90); WHITE BLOOD CELL COUNT,WBC 8.02 K/mm3 (3.9-11.3)
[2024-05-22 05:05] LABS: INR 1.55
[2024-05-22 05:12] LABS: A/G RATIO 1.3 (1-2); ALBUMIN 3.4 g/dl (3.4-5.0); ANION GAP 4.6 (5-15); BILIRUBIN TOTAL 1.5 mg/dL (0.2-1.0); BUN/CREATININE RATIO 31.3 (14-18); CREATININE 0.8 mg/dL (0.7-1.3); EST CRCL DRUG DOSING (CG) 89.6 mL/min; POTASSIUM,K 3.6 mEq/L (3.5-5.1)
[2024-05-22] MEDS: Furosemide 20 MG Tab PO SCH (06:14)
[2024-05-22 06:59] LABS: BASE EXCESS ARTERIAL 13.8 (-2-2.0); BICARBONATE,ARTERIAL 42.6 meq/L (22.0-26.0); O2 SATURATION ARTERIAL 92.5 % (96.0-97.0); PCO2 ARTERIAL 71.2 mmHg (35.0-45.0)
[2024-05-22] MEDS ORDERED: Furosemide 20 MG Tab PO SCH (07:00)
[2024-05-22] MEDS: Levalbuterol HCl 1.25 MG/0.5 ML Neb ONE (08:35)
[2024-05-22] MEDS: Levalbuterol HCl 1.25 MG/0.5 ML Neb NEB SCH (08:35)
[2024-05-22] MEDS: Warfarin 5 MG Tab PO SCH (18:19)
[2024-05-22] MEDS: Furosemide 40 MG Tab PO SCH (23:59)
[2024-05-23 05:19] LABS: BASE EXCESS VENOUS 14.3 (-4.0-2.0); BICARBONATE,VENOUS 41.7 meq/L (22-26); O2 SATURATION VENOUS 59.5; PCO2 VENOUS 63.4 mmHg (41-51); PH,VENOUS 7.43 (7.30-7.40)
[2024-05-23 05:35] LABS: BASOPHILS PERCENT AUTO 0.1 % (0.0-1.0); EOSINOPHILS ABSOLUTE AUTO 0.1 K/mm3 (0.0-0.4); EOSINOPHILS PERCENT AUTO 0.7 % (0.0-6.0); HEMATOCRIT 42.3 % (42.0-52.0); IMMATURE GRAN ABSOLUTE AUTO 0.03 K/mm3 (0.00-0.05); IMMATURE GRAN PERCENT AUTO 0.3 % (0.0-0.4); LYMPHOCYTES ABSOLUTE AUTO 1.3 K/mm3 (1.0-4.8); MEAN CORPUSCULAR HGB CONC 33.1 g/dl (32.0-36.0); MEAN CORPUSCULAR VOLUME 93.8 fl (83.0-99.0); MEAN PLATELET VOLUME 10.2 fl (9.4-12.4); MONOCYTES PERCENT AUTO 10.8 % (0.0-8.0); NEUTROPHILS ABSOLUTE AUTO 6.6 K/mm3 (1.8-7.7); NEUTROPHILS PERCENT AUTO 74.1 % (41.0-71.0); PLATELET COUNT,PLT 201 K/mm3 (150-400); RED BLOOD CELL COUNT 4.51 M/mm3 (4.52-5.90); WHITE BLOOD CELL COUNT,WBC 8.92 K/mm3 (3.9-11.3)
[2024-05-23 06:00] LABS: A/G RATIO 1.3 (1-2); ALBUMIN 3.4 g/dl (3.4-5.0); ANION GAP 2.1 (5-15); BILIRUBIN TOTAL 1.3 mg/dL (0.2-1.0); BUN/CREATININE RATIO 27.5 (14-18); CREATININE 0.8 mg/dL (0.7-1.3); EST CRCL DRUG DOSING (CG) 89.6 mL/min; POTASSIUM,K 4.1 mEq/L (3.5-5.1)
[2024-05-23 06:01] LABS: INR 1.4; PROTHROMBIN TIME 14.5 SECONDS (9.7-12.0)
[2024-05-23] MEDS: Warfarin 5 MG Tab PO SCH (18:14)
[2024-05-24 05:23] LABS: BASE EXCESS VENOUS 13.3 (-4.0-2.0); BICARBONATE,VENOUS 39.6 meq/L (22-26); O2 SATURATION VENOUS 60.4; PCO2 VENOUS 56.2 mmHg (41-51); PH,VENOUS 7.46 (7.30-7.40)
[2024-05-24 05:50] LABS: A/G RATIO 1.4 (1-2); ALBUMIN 3.4 g/dl (3.4-5.0); BILIRUBIN TOTAL 1.1 mg/dL (0.2-1.0); BUN/CREATININE RATIO 21.1 (14-18); CREATININE 0.9 mg/dL (0.7-1.3); EST CRCL DRUG DOSING (CG) 79.65 mL/min; PROTEIN TOTAL,TP 5.8 g/dl (6.4-8.2)
[2024-05-24 06:03] LABS: INR 1.51; PROTHROMBIN TIME 15.6 SECONDS (9.7-12.0)
[2024-05-24] MEDS: Warfarin 5 MG Tab PO SCH (17:54)
[2024-05-25 05:15] LABS: BASE EXCESS VENOUS 11.9 (-4.0-2.0); BICARBONATE,VENOUS 38.8 meq/L (22-26); O2 SATURATION VENOUS 53.5; PCO2 VENOUS 60.4 mmHg (41-51); PH,VENOUS 7.42 (7.30-7.40)
[2024-05-25 05:47] LABS: A/G RATIO 1.2 (1-2); ALBUMIN 3.4 g/dl (3.4-5.0); BILIRUBIN TOTAL 0.9 mg/dL (0.2-1.0); CALCIUM 9.2 mg/dL (8.5-10.1); EST CRCL DRUG DOSING (CG) 71.68 mL/min; PROTEIN TOTAL,TP 6.2 g/dl (6.4-8.2)
[2024-05-25 06:12] LABS: INR 1.94; PROTHROMBIN TIME 19.7 SECONDS (9.7-12.0)
[2024-05-25] MEDS: predniSONE 20 MG Tab PO SCH (08:14)
[2024-05-25] MEDS: Levalbuterol HCl 1.25 MG/0.5 ML Neb ONE (08:52)
[2024-05-25] MEDS: LORazepam 2 MG/ML SDV IVPUSH PRN (11:13)
[2024-05-25] MEDS: Warfarin 7.5 MG Tab PO SCH (17:47)
[2024-05-26 04:39] LABS: INR 2.42; PROTHROMBIN TIME 24.2 SECONDS (9.7-12.0)
[2024-05-26 04:47] LABS: A/G RATIO 1.3 (1-2); ALBUMIN 3.6 g/dl (3.4-5.0); BILIRUBIN TOTAL 0.8 mg/dL (0.2-1.0); BUN/CREATININE RATIO 21.1 (14-18); CALCIUM 9.1 mg/dL (8.5-10.1); CREATININE 0.9 mg/dL (0.7-1.3); EST CRCL DRUG DOSING (CG) 79.65 mL/min; PROTEIN TOTAL,TP 6.3 g/dl (6.4-8.2)
[2024-05-26 05:08] LABS: BASE EXCESS VENOUS 10.2 (-4.0-2.0); O2 SATURATION VENOUS 99.6; PCO2 VENOUS 41.3 mmHg (41-51); PH,VENOUS 7.53 (7.30-7.40)
[2024-05-26] MEDS: LORazepam 0.5 MG Tab PO PRN (11:28)
[2024-05-26] MEDS: Warfarin 5 MG Tab PO SCH (17:31)
[2024-05-27 10:01] VITALS: BP 125/88; PULSE 81
== END 2024-05-27 09:44 | disposition home or self-care (01) | DRG 189 ==
LOC: JD.ED 21:48 → JD.MS 23:35
PROVIDERS: ADMIT Family Medicine; ATTEND Internal Medicine
PROC: 5A09557 Assistance with Respiratory Ventilation, Greater than 96 Consecutive Hours, Continuous Positive Airway Pressure (ICD-10-PCS; principal; 2024-05-16)
PROC: 4A133R1 Monitoring of Arterial Saturation, Peripheral, Percutaneous Approach (ICD-10-PCS; 2024-05-16)
DX: J96.21 Acute and chronic respiratory failure with hypoxia (principal); J44.1 Chronic obstructive pulmonary disease with (acute) exacerbation; I48.20 Chronic atrial fibrillation, unspecified; I48.91 Unspecified atrial fibrillation; I50.32 Chronic diastolic (congestive) heart failure; J96.02 Acute respiratory failure with hypercapnia; I11.0 Hypertensive heart disease with heart failure; I50.9 Heart failure, unspecified; Z79.01 Long term (current) use of anticoagulants; E78.00 Pure hypercholesterolemia, unspecified; I73.9 Peripheral vascular disease, unspecified; G62.9 Polyneuropathy, unspecified; F15.90 Other stimulant use, unspecified, uncomplicated; E03.9 Hypothyroidism, unspecified; J84.10 Pulmonary fibrosis, unspecified; I27.20 Pulmonary hypertension, unspecified; J43.9 Emphysema, unspecified; Z79.02 Long term (current) use of antithrombotics/antiplatelets; Z79.82 Long term (current) use of aspirin; Z79.899 Other long term (current) drug therapy; Z99.81 Dependence on supplemental oxygen; Z95.0 Presence of cardiac pacemaker; Z88.8 Allergy status to other drugs, medicaments and biological substances; Z86.16 Personal history of COVID-19; Z98.890 Other specified postprocedural states; Z87.891 Personal history of nicotine dependence
CPT/HCPCS: 36415; 36600; 71045; 71045-26; 80048; 80053; 81001; 82803; 83605; 83735; 83880; 84443; 84484; 85025; 85379; 85610; 86140; 87428-QW; 93005; 93010; 93306; 94640; 94660; 94667; 94668; 94760; 94761; 94762; 96365; 96375; 97110-GP; 97161-GP; 97162-GP; 97530-GP; 99284; 99285-25; A9270-GY; J0456; J0692; J1940; J2060; J2919; J3475; J3490; J7512; J7612-GY; J7620-GY

== ENCOUNTER 2024-10-27 09:18 | Emergency (ER) | payer MEDICARE ==
[2024-10-27] MEDS ORDERED: Albuterol/Ipratropium 3.0-0.5 MG/3 ML Neb Soln NEB ONE (09:24)
[2024-10-27] MEDS ORDERED: propofoL 1,000 MG/100 ML 100 ML IV SCH ×2 (09:35→17:15)
[2024-10-27] MEDS: Etomidate 2 MG/ML 20 ML SDV IVPUSH ONE (09:40)
[2024-10-27 09:41] LABS: BASOPHILS PERCENT AUTO 0.3 % (0.0-1.0); EOSINOPHILS PERCENT AUTO 0.1 % (0.0-6.0); HEMATOCRIT 49.4 % (42.0-52.0); IMMATURE GRAN ABSOLUTE AUTO 0.01 K/mm3 (0.00-0.05); IMMATURE GRAN PERCENT AUTO 0.1 % (0.0-0.4); LYMPHOCYTES ABSOLUTE AUTO 1.8 K/mm3 (1.0-4.8); LYMPHOCYTES PERCENT AUTO 24.7 % (24.0-44.0); MEAN CORPUSCULAR HEMOGLOBIN 31.2 pg (28.0-32.0); MEAN CORPUSCULAR HGB CONC 32.8 g/dl (32.0-36.0); MEAN PLATELET VOLUME 11.7 fl (9.4-12.4); MONOCYTES ABSOLUTE AUTO 0.9 K/mm3 (0.0-0.8); NEUTROPHILS ABSOLUTE AUTO 4.7 K/mm3 (1.8-7.7); NEUTROPHILS PERCENT AUTO 62.8 % (41.0-71.0); PLATELET COUNT,PLT 141 K/mm3 (150-400); WHITE BLOOD CELL COUNT,WBC 7.41 K/mm3 (3.9-11.3)
[2024-10-27] MEDS: Rocuronium 50 MG/5 ML Vial IVPUSH ONE ×2 (09:41→13:12)
[2024-10-27] MEDS: Benzocaine 20% Topical Spray UD MUCMEM ONE (09:45)
[2024-10-27] MEDS: Diltiazem 25 MG/5 ML SDV ONE (09:50)
[2024-10-27] MEDS: Furosemide 20 MG/2 ML VIAL IVPUSH ONE ×2 (09:54)
[2024-10-27] MEDS: Furosemide 100 MG/10 ML SDV IVPUSH ONE (09:54)
[2024-10-27] MEDS ORDERED: Furosemide 40 MG/4 ML VIAL IVPUSH ONE (09:54)
[2024-10-27 09:57] LABS: HEMOGLOBIN 16.2 gm/dl (14.0-18.0)
[2024-10-27] MEDS ORDERED: SODIUM CHLORIDE 0.9% IV ONE (10:00)
[2024-10-27] MEDS ORDERED: VANCOMYCIN IV ONE (10:00)
[2024-10-27 10:15] LABS: APPEARANCE,URINE SLT CLOUDY (Clear); BILIRUBIN,URINE NEGATIVE (Negative); COLOR,URINE YELLOW (Yellow); GLUCOSE,URINE 3+ (Negative); KETONES,URINE 2+ (Negative); LEUKOCYTE ESTERASE,URINE NEGATIVE (Negative); NITRITE,URINE NEGATIVE (Negative); OCCULT BLOOD,URINE NEGATIVE (Negative); PROTEIN,URINE 2+ (Negative); UROBILINOGEN,URINE 0.2 (0.2-1.0)
[2024-10-27 10:20] LABS: BACTERIA,URINE FEW /hpf (FEW); MUCUS,URINE FEW /hpf (FEW); RBC,URINE 0-5 /hpf (0-5); SQUAMOUS EPITHELIAL CELLS,UR 0-5 /hpf (0-5); WBC,URINE 0-5 /hpf (0-5)
[2024-10-27 10:22] LABS: BASE EXCESS ARTERIAL -1.2 (-2-2.0); BICARBONATE,ARTERIAL 28.5 meq/L (22.0-26.0); O2 SATURATION ARTERIAL 97.7 % (96.0-97.0)
[2024-10-27 10:25] LABS: BARBITURATE SCREEN,URINE NEGATIVE (CUTOFF=200); BENZODIAZEPINES SCREEN,URINE NEGATIVE (CUTOFF=150); BUPRENORPHINE SCREEN,URINE NEGATIVE (CUTOFF=10); METHADONE SCREEN, URINE NEGATIVE (CUT0FF=200); METHAMPHETAMINES SCREEN, URINE NEGATIVE (CUTOFF=500); OXYCODONE SCREEN,URINE NEGATIVE (CUT0FF=100); THC SCREEN,URINE 20 NG/ML NEGATIVE (CUTOFF=50)
[2024-10-27 10:32] LABS: AMPHETAMINES SCREEN, URINE NEGATIVE (CUTOFF=500)
[2024-10-27] MEDS: propofoL 1,000 MG/100 ML 100 ML ONE (10:47)
[2024-10-27] MEDS: Furosemide 100 MG/10 ML SDV ONE (10:47)
[2024-10-27] MEDS: Furosemide 20 MG/2 ML VIAL ONE (10:47)
[2024-10-27] MEDS: methylPREDNISolone Sodium Succinate 125 MG/2 ML SDV IVPUSH ONE (10:55)
[2024-10-27] MEDS: Piperacillin/Tazobactam 4.5 GM in Sodium Chloride 0.9% 100 ML IV ONE (11:01)
[2024-10-27 11:06] LABS: INR 2.03; PROTHROMBIN TIME 20.5 SECONDS (9.7-12.0)
[2024-10-27 11:27] LABS: A/G RATIO 1.2 (1-2); ALANINE AMINOTRANSFERASE,ALT 700 U/L (16-63); ALBUMIN 3.9 g/dl (3.4-5.0); ALKALINE PHOSPHATASE 186 U/L (46-116); ANION GAP 15.4 (5-15); BILIRUBIN TOTAL 1.2 mg/dL (0.2-1.0); BLOOD UREA NITROGEN,BUN 24 mg/dL (7-18); BUN/CREATININE RATIO 21.8 (14-18); CALCIUM 9.1 mg/dL (8.5-10.1); CHLORIDE,CL 98 mEq/L (98-107); CREATINE KINASE,CK 130 U/L (39-308); CREATININE 1.1 mg/dL (0.7-1.3); ESTIMATED GFR 74 mL/min (>60); GLUCOSE RANDOM 200 mg/dL (70-99); LIPASE 38 U/L (16-77); MAGNESIUM 2.5 mg/dL (1.8-2.4); PROTEIN TOTAL,TP 7.2 g/dl (6.4-8.2); SODIUM,NA 137 mEq/L (136-145); TROPONIN I HIGH SENSITIVITY 37 pg/mL (<=76)
[2024-10-27] MEDS: VANCOmycin 2 GM/400 ML 2 GM in Premix Bag 1 BAG IV ONE (11:36)
[2024-10-27 11:38] LABS: ASPARTATE AMNIOTRANSFERASE,AST 1010 U/L (15-37)
[2024-10-27 11:39] LABS: CARBON DIOXIDE,CO2 28 mEq/L (21-32); POTASSIUM,K 4.4 mEq/L (3.5-5.1)
[2024-10-27] MEDS: LORazepam 2 MG/ML SDV IVPUSH ONE ×2 (11:47→12:37)
[2024-10-27] MEDS: LORazepam 2 MG/ML SDV ONE (11:49)
[2024-10-27] MEDS: fentaNYL 2,500 MCG in Sodium Chloride 0.9% 200 ML IV SCH (11:58)
[2024-10-27 13:18] VITALS: BP 97/65; PULSE 71
== END 2024-10-27 13:21 ==
LOC: JD.ED 09:18
DX: J96.01 Acute respiratory failure with hypoxia (principal); J96.02 Acute respiratory failure with hypercapnia; I11.0 Hypertensive heart disease with heart failure; I50.9 Heart failure, unspecified; I48.20 Chronic atrial fibrillation, unspecified; J44.9 Chronic obstructive pulmonary disease, unspecified; E78.00 Pure hypercholesterolemia, unspecified; Z86.16 Personal history of COVID-19; Z88.8 Allergy status to other drugs, medicaments and biological substances; Z79.01 Long term (current) use of anticoagulants; Z79.51 Long term (current) use of inhaled steroids; Z79.82 Long term (current) use of aspirin; Z79.890 Hormone replacement therapy; Z79.899 Other long term (current) drug therapy; Z99.81 Dependence on supplemental oxygen
CPT/HCPCS: 31500; 36415; 36600; 51702; 71045; 74018; 80053; 80306; 80307; 81001; 82550; 82803; 83605; 83690; 83735; 83880; 84484; 85025; 85610; 86850; 86900; 86901; 87040; 93005; 96365; 96366; 96367; 96368; 96375; 96376; 99291; 99292; J1938; J2060; J2543; J2704; J2919; J3010; J3372; J3490; J7050; 93010; 99285